=== PATIENT | male | born 1975 | race Caucasian/White ===

== ENCOUNTER 2018-08-16 16:49 | Emergency (ER) | payer BC, OTHER ==
[2018-08-16 16:55] VITALS: BP 139/79; PULSE 75; TEMP 97.6; BMI 30.1
--- NOTE | 2018-08-16 18:32 | PDOC ---
History of Present Illness - General Chief Complaint: Rash Stated Complaint: BODY ITCHING Time Seen by Provider: 08/16/18 18:07 History Source: Patient Exam Limitations: Clinical Condition - History of Present Illness Initial Comments: 08/16/18 18:27 Patient with no sick the past medical history present with complain of rash and peeling of the skin to subramanian aspect of left hand which has been persistent for a week and has not improved with hydrocortisone topical cream. Patient reported he saw his primary care 4 days ago and was prescribed hydrocortisone cream which is not helping and still have peeling of the skin and itching to the hands more left than right. Denies any other symptoms 08/16/18 18:34 Timing/Duration: 1 week Past History - Past Medical History Allergies/Adverse Reactions: Allergies Allergy/AdvReac Type Severity Reaction Status Date / Time No Known Allergies Allergy Verified 08/16/18 16:54 Home Medications: Ambulatory Orders Clotrimazole/Betamet Diprop [Lotrisone Cream (Small Tube)] 1 applic TP BID 7 Days #1 tube 08/16/18 Hydralazine HCl 25 mg PO DAILY 08/16/18 Hydrocortisone 1% Cream [Hytone 1% Cream -] 1 applic TP BID 08/16/18 Methylprednisolone [Medrol Dose Gaurang] 4 mg PO ASDIR 08/16/18 COPD: No - Suicide/Smoking/Psychosocial Hx Smoking History: Never smoked Review of Systems - Review of Systems Able to Perform ROS?: Yes Is the patient limited Kazakh proficient: No Constitutional: No: Chills HEENTM: No: Eye Pain, Blurred Vision, Tearing, Recent change in vision, Double Vision, Cataracts, Ear Pain, Ocular Prothesis, Ear Discharge, Nose Pain, Nose Congestion, Tinnitus, Nose Bleeding, Hearing Loss, Throat Pain, Throat Swelling , Mouth Pain, Dental Problems, Difficulty Swallowing, Mouth Swelling, Other Respiratory: No: Cough, Orthopnea, Shortness of Breath, SOB with Exertion, SOB at Rest, Stridor, Wheezing, Productive cough, Hemoptysis, Other Cardiac (ROS): No: Chest Pain, Edema, Irregular Heart Rate, Lightheadedness, Palpitations, Syncope, Chest Tightness, Other ABD/GI: No: Abdominal Distended, Abd. Pain w/ defecation, Blood Streaked Bowels , Constipated, Diarrhea, Difficulty Swallowing, Nausea, Poor Appetite, Poor Fluid Intake, Rectal Bleeding, Vomiting, Indigestion, Abdominal cramping, Tarry Stools, Other Integumentary: Yes: Change in Color (palmar aspect of left hand), Pruritus ( left hand), Rash (left hand, mild on right hand) All Other Systems: Reviewed and Negative *Physical Exam - Vital Signs Last Vital Signs Temp Pulse Resp BP Pulse Ox 97.6 F 75 18 139/79 99 08/16/18 16:52 08/16/18 16:52 08/16/18 16:52 08/16/18 16:52 08/16/18 16:52 - Physical Exam Comments: 08/16/18 18:30 GENERAL: Well developed, well nourished. Awake and alert. No acute distress. CARDIOVASCULAR: Regular rate and rhythm. No murmurs, rubs, or gallops. Distal pulses are 2+ and symmetric. PULMONARY: No evidence of respiratory distress. Lungs clear to auscultation bilaterally. No wheezing, rales or rhonchi. ABDOMINAL: Soft. Non-tender. Non-distended. No rebound or guarding. No organomegaly. Normoactive bowel sounds. MUSCULOSKELETAL Normal range of motion at all joints. No bony deformities or tenderness. No CVA tenderness. EXTREMITIES: No cyanosis. No clubbing. No edema. No calf tenderness. SKIN: Multiple desquamation of the palmar aspect of left hand with peeling of the skin of palm of left hand. Warm and dry. Normal capillary refill. No rashes. No jaundice. NEUROLOGICAL: Alert, awake, appropriate. Gait is normal without ataxia. PSYCHIATRIC: Cooperative. Good eye contact. Appropriate mood and affect. General Appearance: Yes: Nourished, Appropriately Dressed. No: Apparent Distress Medical Decision Making - Medical Decision Making 08/16/18 18:31 Patient with no significant past medical history present with complain of itching until the skin of the palmar aspect of left hand with mild symptoms of right hand which has been persistent for a week and has not with soap with topical hydrocortisone cream given by primary care. Exam significant for desquamation rash of palmar aspect of left hand. Symptoms likely tinea dermatitis and will be treated with Lotrisone topical cream and dermatology follow-up *DC/Admit/Observation/Transfer Diagnosis at time of Disposition: Dermatitis - Discharge Dispostion Disposition: HOME Condition at time of disposition: Stable Decision to Admit order: No - Prescriptions Prescriptions: Clotrimazole/Betamet Diprop [Lotrisone Cream (Small Tube)] 1 applic TP BID 7 Days #1 tube - Referrals Referrals: Jase Gamino MD [Primary Care Provider] - Fermin Scruggs MD [Non Staff, Medical] - - Patient Instructions Printed Discharge Instructions: DI for Atopic Dermatitis - Adult Additional Instructions: Use medication as prescribed. Follow up with preferred dermatology for follow- up assessment and treatment. - Post Discharge Activity
== END 2018-08-16 18:49 | disposition home or self-care (01) ==
LOC: JERFT 16:49
DX: L30.9 Dermatitis, unspecified (principal)
CPT/HCPCS: 99281-25